=== PATIENT | male | born 1950 | race Caucasian/White ===

== ENCOUNTER → 2021-09-04 13:25 | Outpatient (BNVA) | payer MEDICARE, BC, SELFPAY | PROVIDERS: Family Provider Family Medicine; Visit Provider Surgery | DX: Z01.812 Encounter for preprocedural laboratory examination (principal); Z20.822 Contact with and (suspected) exposure to COVID-19 | CPT/HCPCS: 87635 ==

== ENCOUNTER 2021-09-11 08:32 | Day surgery (SDC) | payer MEDICARE, BC, SELFPAY ==
[2021-09-09 15:11] VITALS: BMI 21.8
--- NOTE | 2021-09-11 08:45 | W.PM.OPSFHP ---
Same Day Surgery H&P Indication for Procedure/HPI DATE OF PROCEDURE: September 11, 2021 CHIEF COMPLAINT/INDICATIONFOR SURGICAL PROCEDURE: History of colon polyp PREOP DIAGNOSIS: History of colon polyps PLANNED PROCEDRUE: Operation Date: 09/11/21 10:00 Proposed Procedures p Colonoscopy 85336 r19.4(Not Applicable) - Mahamed Clements MD 07/22/2021 This is a pleasant 70 years old gentleman gives history of colon polyps back in 2007. Also gives a history of his father age of 65 developed colorectal cancer. Patient started to have nonbloody diarrhea back in April 14 and he gives also history of prostate cancer without getting any radiation. Overall he feels better now and he denies any water well and no recent antibiotics or recent travels and he has not been sick or around sick folks. Reports history of anxiety and no evidence of thyroid gland disorders. Interim history 09/11/2021 Patient comes today for colonoscopy for surveillance purposes. And he reports that the diarrhea is gone ROS All systems have been reviewed negative except as per the above or per problem list Medications/Allergies* Home Medications Medication Instructions Recorded Confirmed Type alpha lipoic acid 100 mg capsule 100 mg PO DAILY 07/22/21 09/09/21 History alprazolam 0.5 mg tablet 0.5 mg PO DAILY 07/22/21 09/09/21 History clorazepate dipotassium 7.5 mg 3.75 mg PO DAILY PRN 07/22/21 09/09/21 History tablet coenzyme Q10 30 mg capsule 30 mg PO BID 07/22/21 09/09/21 History duloxetine 30 mg capsule,delayed 30 mg PO BEDTIME 07/22/21 09/09/21 History release hydrocodone 5 mg-acetaminophen 300 0.5 tab PO QID PRN 07/22/21 09/09/21 History mg tablet milk thistle 150 mg capsule 150 mg PO DAILY 07/22/21 09/09/21 History multivitamin 1 tab PO DAILY 07/22/21 09/09/21 History omega-3 fatty acids 1,000 mg 1,000 mg PO DAILY 07/22/21 09/09/21 History capsule pregabalin 100 mg capsule 100 mg PO DAILY 07/22/21 09/09/21 History sildenafil 25 mg tablet 25 mg PO DAILY PRN 07/22/21 09/09/21 History trazodone 50 mg tablet 50 mg PO BEDTIME 07/22/21 09/09/21 History Allergies/Adverse Reactions Allergy/AdvReac Type Severity Reaction Status Date / Time No Known Allergies Allergy Verified 09/09/21 15:13 Pertinent History/Comorbid Conditions* Family History (Updated 07/22/21 @ 09:59 by Hyun Kraus) Cancer Denies family history of Diabetes CAD (coronary artery disease) Dementia Chronic kidney disease (CKD) Lung disease Stroke Social History Smoking and tobacco status: current every day smoker Alcohol intake: current Alcohol intake frequency: 0-2 Drinks per Day Lives independently: Yes Household members: spouse Pertinent Exam Findings alert, oriented x 3, regular rate & rhythm and procedure specific exam findings (Abdominal examination nontender nondistended soft) Recommendations Surgery/Procedure today (Colonoscopy with possible biopsy and possible polypectomy) Coding Level of Care Code 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
--- NOTE | 2021-09-11 09:02 | ANES.PREANE2 ---
Pre-Anesthetic Assessment Pre-Anesthetic Assessment: Height/Weight: Height 1.88 m Weight 77.111 kg Preop Diagnosis: History of colon polyps Proposed Procedure: Operation Date: 09/11/21 10:00 Proposed Procedures p Colonoscopy 22428 r19.4(Not Applicable) - Mahamed Clements MD Was Beta Rebekah taken within 24 hours: N/A Was Clonidine taken within 24 hours: N/A Social: Social History: Tobacco and No alcohol Exam: Pre-Anes Outpt Exam: alert, oriented x 3 and regular rate & rhythm Airway: Submandibular: WNL Cervical ROM: WNL MP: 2 Dentition: False Pulmonary: Pulmonary: COPD Musc/skel: Comments: Chronic pain/opioid Neuropsych: Neuropsych: Anxiety, Depression and Neuropathy Anesthetic Plan: ASA status: 3 Anesthesia: MAC Risk of > 500 ml blood loss (7ml/kg in children): No PFSH Anesthesia PFSH: Family History Other Cancer Denies family history of Diabetes CAD (coronary artery disease) Dementia Chronic kidney disease (CKD) Lung disease Stroke Social History Smoking and tobacco status: current every day smoker Alcohol intake: current Alcohol intake frequency: 0-2 Drinks per Day Lives independently: Yes Household members: spouse Data Anesthesia Cardiac Studies: No Data to Display
[2021-09-11 09:09] VITALS: BP 100/74; PULSE 110; RESP 16; TEMP 36.6; O2SAT 94
[2021-09-11] MEDS: sodium chloride 0.9% 1,000 ML 30 ML IV (09:13)
[2021-09-11 10:05] VITALS: BP 87/57; PULSE 91; RESP 16; TEMP 36.3; O2SAT 96
[2021-09-11 10:18] VITALS: BP 90/68; PULSE 93; RESP 16; O2SAT 91
--- NOTE | 2021-09-11 14:56 | ANE.PACU2 ---
Inpatient post-anesthesia follow up: Airway intact: Yes Vital signs: Temperature 97.3 F Pulse Rate 93 Respiratory Rate 16 Blood Pressure 90/68 Pulse Oximetry 91 Oxygen Delivery Me thod Room Air Oxygen Flow Rate Fraction of Inspir ed Oxygen Hydration adequate: Yes Nausea and vomiting: No Pain level: 1 Mental status: Baseline
== END 2021-09-11 10:39 | disposition home or self-care (01) ==
PROVIDERS: Surgery; PCP Family Medicine; Visit Provider Surgery
PROC: 0DJD8ZZ Inspection of Lower Intestinal Tract, Via Natural or Artificial Opening Endoscopic (ICD-10-PCS; CPT 45378; principal; 2021-09-11 10:00)
DX: Z12.11 Encounter for screening for malignant neoplasm of colon (principal); Z86.010 Personal history of colon polyps; Z80.0 Family history of malignant neoplasm of digestive organs; Z85.46 Personal history of malignant neoplasm of prostate; F17.210 Nicotine dependence, cigarettes, uncomplicated; K57.30 Diverticulosis of large intestine without perforation or abscess without bleeding
CPT/HCPCS: 45378; 96360; J2704; J7030

== ENCOUNTER → 2022-05-06 14:34 | Outpatient (BNVA) | payer MEDICARE, BC, SELFPAY | PROVIDERS: PCP Family Medicine; Visit Provider Internal Medicine | DX: B19.20 Unspecified viral hepatitis C without hepatic coma (principal) | CPT/HCPCS: 80053; 82105; 85025; 86705; 86706; 87340; 87522; 87902 ==

== ENCOUNTER 2022-07-01 08:01 | Outpatient (CLI) | payer MEDICARE, BC, SELFPAY ==
--- NOTE | 2022-07-01 08:00 | US_ITS ---
WS: [id number] RIGHT UPPER QUADRANT ULTRASOUND HISTORY: Hepatitis C COMPARISON: None available. Liver: 14.1 cm in length. Normal size liver. No bile duct dilatation or mass. Portal Vein: Normal hepatopetal flow with monophasic waveform. Gallbladder: Normally distended gallbladder with no stones or wall thickening. CBD: 0.3 cm Pancreas: Normal size and echogenicity. Right kidney: 10.2 cm in length. Normal size and echogenicity. No hydronephrosis or mass. Aorta and IVC: Unremarkable abdominal aorta and IVC. No ascites. US/US liver [id number] IMPRESSION: Normal RIGHT upper quadrant ultrasound.
== END 2022-07-01 08:02 | disposition home or self-care (01) ==
PROVIDERS: PCP Family Medicine; Visit Provider Internal Medicine
DX: B19.20 Unspecified viral hepatitis C without hepatic coma (principal)
CPT/HCPCS: 76705

== ENCOUNTER → 2022-08-05 10:13 | Outpatient (BNVA) | payer MEDICARE, BC, SELFPAY | PROVIDERS: PCP Family Medicine; Visit Provider Internal Medicine | DX: B19.20 Unspecified viral hepatitis C without hepatic coma (principal) | CPT/HCPCS: 87902 ==

== ENCOUNTER 2022-10-07 06:00 | Outpatient (RCR) | payer MEDICARE, BC, SELFPAY | END 2022-10-11 23:59 | disposition home or self-care (01) | LOC: MOT 06:00 | PROVIDERS: PCP Family Medicine; Visit Provider Orthopaedic Surgery | DX: M79.645 Pain in left finger(s) (principal) | CPT/HCPCS: 97110; 97140; 97166 ==

== ENCOUNTER 2022-10-12 06:00 | Outpatient (RCR) | payer MEDICARE, BC, SELFPAY | END 2022-11-11 23:59 | disposition home or self-care (01) | LOC: MOT 06:00 | PROVIDERS: PCP Family Medicine; Visit Provider Orthopaedic Surgery | DX: M79.645 Pain in left finger(s) (principal) | CPT/HCPCS: 97110; 97140 ==

== ENCOUNTER 2023-01-22 14:38 | Outpatient (CLI) | payer MEDICARE, BC, SELFPAY ==
--- NOTE | 2023-01-22 14:58 | XR_ITS ---
WS: [id number] EXAMINATION: XR chest 2V* [id number] REASON FOR EXAM: DYSPNEA COMPARISON: 03/26/2015 ORDER DATE: 01/22/2023 3:04 PM FINDINGS: The apparent interlobular septal thickening in the lung bases superimposing chronic lung change could be due to technique difference but is suspicious for early interstitial edema. Hyperinflation and ch ronic lung changes again noted. The cardiac and mediastinal outlines are unremarkable with atheroscle rotic aortic change. There are no significant pleural effusions . No significant abnormalities are no chacho in the spine or remainder of the bony thorax. XR/XR chest 2V* [id number] IMPRESSION: SUSPECT EARLY INTERSTITIAL EDEMA COMPARED WITH THE PRIOR STUDY CONSIDERING IT A S A BASELINE EXAM FOR CHRONIC LUNG CHANGE.
== END 2023-01-22 14:39 | disposition home or self-care (01) ==
PROVIDERS: PCP Family Medicine; Visit Provider Family Medicine
DX: R06.00 Dyspnea, unspecified (principal)
CPT/HCPCS: 71046

== ENCOUNTER 2023-02-19 08:20 | Outpatient (CLI) | payer MEDICARE, BC, SELFPAY ==
[2023-02-19 08:38] VITALS: BMI 23.7
--- NOTE | 2023-02-19 08:39 | NMCV_ITS ---
NM jose perf SPECT r/s* [id number] Wally Barlow Age: 72 Gender: M : 1950 Exam Date: 02/19/2023 09:26 Ordering Phys: Sadia Emerson MD Technologist: DEV Chávez Exam Location: [facility] Indications: SHORTNESS OF BREATH STRESS TEST Please see separate stress test report in [facility] for full findings IMAGE PROTOCOL Rest/Stress 1 Lexiscan Day Radiopharmaceutical Dose (mCi) Administration Site Administered by Rest: Tc-99m 10.7 IV DEV Chávez Sestamibi Stress:Tc-99m 32.4 IV DEV Maloney Sestamibi Rest: 19-Feb-2023 60 Discovery 630 Stress: 19-Feb-2023 30 Discovery 630 0.4mg Lexiscan. Images obtained in supine and prone position. SPECT RESULTS Technical Quality: Excellent Raw Data Analysis: Normal Image Corrections: No attenuation or motion correction applied Summed Stress Score: 0 Summed Rest Score: 1 Summed Difference Score: 0 PERFUSION FINDINGS Uniform myocardial tracer uptake with no significant perfusion abnormalities FUNCTIONAL RESULTS (calculated via Gated SPECT) Stress Image LV EF (%): 60 Stress EDV (mL):127 TID: 1.13 Stress ESV (mL):51 FUNCTIONAL FINDINGS: Segmental wall motion analysis revealing no gross wall motion abnormalities IMPRESSIONS 1. Unremarkable Myocardial perfusion imaging. 2. Normal LV ejection fraction of 60%. 3. LV wall motion analysis revealing no gross wall motion abnormalities. 4. Mildly dilated LV cavity. Low probability for coronary ischemia, based on the above findings Dr Miki Chakraborty MD [facility] (Electronically Signed) Final Date: 19 Feb 2023 15:17 S
--- NOTE | 2023-02-19 08:39 | ECG_ITS ---
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 Interpretive Statements NAME OF STUDY: LEXISCAN SESTAMIBI STRESS TEST INDICATION: Dyspnea, PROCEDURE: At the baseline, the EKG revealed normal sinus rhythm with minimal left axis deviation. The baseline heart was 64 bpm with a blood pressue of 118/88 mm of Hg Lexiscan was infused over a period of 20 seconds. A total of 0.4 milligrams of Lexiscan was infused. The stress phase was continued for a total of 5 minutes. Heart rate at the end of the stress phase was 79 bpm with a blood pressure 160/83 mm of Hg. The EKG at the peak infusion revealed no significant changes. Sestamibi was injected 20 seconds after the Lexiscan infusion. Heart rate at the end of the recovery phase was 77 bpm with a blood pressure of 148/88 mm of Hg. CONCLUSION: 1. No significant EKG changes with the LexiScan infusion 2. No LexiScan induced chest pain or cardiac arrhythmia 3. Normal blood pressure and heart rate response 4. Sestamibi/sestamibi perfusion scan pending; see separate report. Electronically Signed On 02-20-2023 7:39:18 CDT by Miki Chakraborty M.D. [id number]
[2023-02-19] MEDS: regadenoson 0.4 Mg/5 ml Syringe IVP (10:10)
[2023-02-19 10:22] VITALS: BP 148/88; PULSE 80
== END 2023-02-19 08:21 | disposition home or self-care (01) ==
LOC: CDL 08:23
PROVIDERS: PCP Family Medicine; Visit Provider Family Medicine
DX: R06.00 Dyspnea, unspecified (principal)
CPT/HCPCS: 36415; 78452; 93017; 96374; A9500; J2785

== ENCOUNTER 2023-02-26 08:01 | Outpatient (CLI) | payer MEDICARE, BC, SELFPAY ==
[2023-02-26 08:16] VITALS: PULSE 90; RESP 18; O2SAT 92
[2023-02-26] MEDS: albuterol 2.5 mg/3 mL Neb INHALATION (08:16)
[2023-02-26 08:21] VITALS: PULSE 95
== END 2023-02-26 08:02 | disposition home or self-care (01) ==
LOC: RT 08:04
PROVIDERS: PCP Family Medicine; Visit Provider Family Medicine
DX: R06.00 Dyspnea, unspecified (principal)
CPT/HCPCS: 94060; 94726; 94729; J7613

== ENCOUNTER 2023-10-19 12:15 | Outpatient (CLI) | payer MEDICARE, BC, SELFPAY ==
--- NOTE | 2023-10-19 12:19 | CT_ITS ---
WS: [id number] CT CHEST TECHNIQUE: Contrast enhanced CT of the chest with coronal and sagittal reformatted images. CLINICAL INFORMATION: CHRONIC RESPIRATORY FAILURE COMPARISON: None. DLP: 503.[address] scans at [facility] use at least one of these dose optimization techniques: automated e xposure control; mA and/or kV adjustment per patient size (includes targeted exams where dose is matc hed to clinical indication); or iterative reconstruction. FINDINGS: Advanced chronic emphysematous changes. Small to moderate RIGHT pleural effusion. Aortic calcificatio n. Normal caliber thoracic aorta. Proximal main pulmonary arteries are normal. No mediastinal or bj r lymphadenopathy. No axillary lymphadenopathy. Adrenal glands are normal. Normal GE junction. Modera te thoracic kyphosis. Thoracolumbar curve. Pleural parenchymal scarring in the RIGHT middle lobe. Ovoid noncalcified nodule RIGHT lower lobe mor ng the fissure measuring 7 mm. Tiny 3 mm nodule LEFT upper lobe inferiorly and laterally. IMPRESSION: 1. Advanced chronic emphysematous changes. 2. Small to moderate RIGHT pleural effusion. 3. A few noncalcified subcentimeter nodules described above. 4. No mediastinal or hilar lymphadenopathy. 5. No other suspicious findings.
[2023-10-19] MEDS: iohexol 350 mg/mL 100 mL Btl IV (13:01)
[2023-10-19 13:02] LABS: Blood Urea Nitrogen 12 mg/dL (8-23)
[2023-10-19 13:03] LABS: Glomerular Filtration Rate 73.9 mL/min (90-130)
== END 2023-10-19 12:16 | disposition home or self-care (01) ==
LOC: RAD 12:15
PROVIDERS: PCP Family Medicine; Visit Provider Family Medicine
DX: J96.10 Chronic respiratory failure, unspecified whether with hypoxia or hypercapnia (principal); J90 Pleural effusion, not elsewhere classified
CPT/HCPCS: 71260; 82565; 84520; Q9967